=== PATIENT | male | born 1980 | race African-American/Black ===

== ENCOUNTER 2020-05-31 18:21 | Emergency (ER) | payer SELFPAY ==
--- NOTE | 2020-05-31 19:39 | EDM.PDOC ---
ED HPI GENERAL MEDICAL PROBLEM - General Chief Complaint: Bite:Animal, Insect Stated Complaint: FACIAL PAIN/POSSIBLE BITE Time Seen by Provider: 05/31/20 19:00 - History of Present Illness INITIAL COMMENTS - FREE TEXT/NARRATIVE: 40-year-old male presents the emergency room with a abscess developing on his right cheek on his face. Several days ago patient thought he got bit by a bug but did not see it did not capture it. He had this area become more swollen. It started draining on its own and is progressively getting worse. Patient is not any fevers or chills he is unsure when his last tetanus shot was. Patient denies any other symptoms he just has a tender swollen area on his right facial cheek.. Right Cheek Pain Score (Numeric/FACES): 4 - Related Data Allergies Allergy/AdvReac Type Severity Reaction Status Date / Time grass pollen Allergy Itching Verified 05/31/20 18:34 Home Meds: Home Meds Albuterol Sulfate [Albuterol Sulfate Hfa] 2 puff INH Q4H PRN 05/31/20 [History] Clindamycin HCl 300 mg PO Q8H #30 capsule 05/31/20 [Rx] Hydrocodone/Acetaminophen [[place] 5-325 Tablet] 1 - 2 each PO Q6H PRN #16 tablet 05/31/20 [Rx] Past Medical History Respiratory History: Reports: Bronchitis, Recurrent - Past Surgical History Musculoskeletal Surgical History: Reports: Other (See Below) Other Musculoskeletal Surgeries/Procedures:: R hand sx Social & Family History - Family History Family Medical History: Noncontributory - Tobacco Use Smoking Status *Q: Never Smoker - Caffeine Use Caffeine Use: Reports: None - Recreational Drug Use Recreational Drug Use: Yes Recreational Drug Type: Reports: Marijuana/Hashish Recreational Drug Use Frequency: Daily ED ROS GENERAL - Review of Systems Review Of Systems: See Below Constitutional: Reports: No Symptoms Respiratory: Reports: No Symptoms Cardiovascular: Reports: No Symptoms GI/Abdominal: Reports: No Symptoms ED EXAM, ANIMAL BITE - Physical Exam Exam: See Below Exam Limited By: No Limitations General Appearance: Alert, No Apparent Distress Eye Exam: Bilateral Eye: Normal Inspection Nose: Normal Inspection, Normal Mucosa, No Blood Throat/Mouth: Normal Inspection, Normal Lips, Normal Teeth, Normal Gums, Normal Oropharynx, Normal Voice, No Airway Compromise Head: Other (Right anterior cheek 3 x 3 cm with a central area about a centimeter that has been draining. With gentle pressure I got a couple cc of exudative material out of this. Palpation through the buccal mucosa feels the backside of the lesion. Is got a small amount of surrounding erythema.) Neck: Normal Inspection, Supple, Full Range of Motion. No: Lymphadenopathy (L), Lymphadenopathy (R) Respiratory/Chest: No Respiratory Distress, Lungs Clear, Normal Breath Sounds Course - Vital Signs Last Recorded V/S: Last Vital Signs Temp 36.6 C 05/31/20 18:31 Pulse 95 05/31/20 18:31 Resp 18 05/31/20 18:31 BP 159/104 H 05/31/20 18:31 Pulse Ox 98 05/31/20 18:31 - Re-Assessments/Exams Free Text/Narrative Re-Assessment/Exam: 05/31/20 19:44 Gentle pressure is able to get a couple cc of exudative material out here and actually this felt quite a bit better. Because of the location I am concerned about I&D and at this point I would rather give it some time to cool down a little bit and see if he gets quite a bit smaller. I discussed the patient's case with Dr. Mullins who agrees and is willing to see the patient in follow-up on Sunday in the clinic. Patient will be started on clindamycin 300 mg 3 times a day and I will give him a few [place] for the discomfort every 2 hours he supposed to do warm compresses to the area. Departure - Departure Time of Disposition: 19:45 Disposition: Home, Self-Care 01 Clinical Impression: Facial abscess - Discharge Information Referrals: PCP,None [Primary Care Provider] - Elke Mullins MD [Physician] - Additional Instructions: Return to the emergency room with any questions problems or worsening symptoms. Follow-up with Dr. Mullins Sunday for recheck. Warm moist compresses to the area for 20 minutes every 2 hours while awake. You have been started on clindamycin, this is an antibiotic, take it 3 times daily until all gone. You have also been given [place], or hydrocodone, this is a pain pill use only as needed for pain. 1 or 2 tablets every 6 hours. Allow 12 hours after using this medication before driving or returning to work. If using this on a regular basis use some Colace or a stool softener as this medication can cause constipation. Sepsis Event Note (ED) - Evaluation Sepsis Screening Result: No Definite Risk - Focused Exam Vital Signs: Vital Signs Temp Pulse Resp BP Pulse Ox 05/31/20 18:31 36.6 C 95 18 159/104 H 98
== END 2020-05-31 20:02 | disposition home or self-care (01) ==
LOC: JD.ED 18:21
DX: L02.01 Cutaneous abscess of face (principal); Z91.09 Other allergy status, other than to drugs and biological substances
CPT/HCPCS: 87070; 87077; 87186; 87205; 99283